=== PATIENT | female | born 1980 | race Caucasian/White ===

== ENCOUNTER 2017-12-24 13:35 | Outpatient (CLI) | payer OTHER | END 2017-12-24 13:36 | disposition home or self-care (01) | LOC: DTY/OP 13:35 | PROVIDERS: ATTEND Specialist | DX: Z01.818 Encounter for other preprocedural examination (principal); E66.01 Morbid (severe) obesity due to excess calories | CPT/HCPCS: 97802 ==

== ENCOUNTER 2022-10-28 12:51 | Emergency (ER) | payer SELFPAY ==
[2022-10-28 13:21] LABS: #Lymphocytes 0.6 thou/uL (1.20-3.40); #Monocytes 0.4 thou/uL (0.11-0.59); #Neutrophils 4.1 thou/uL (1.40-6.50); %Eosinophils 0.6 % (0.0-10.0); %Lymphocytes 11.3 % (21.0-51.0); %Monocytes 7.8 % (0.0-10.0); %Neutrophils 80.3 % (42.0-75.0); Hemoglobin 10.7 g/dL (12.0-16.0); Mean Corpuscular HGB CONC 30.5 g/dL (32.0-36.0); Mean Corpuscular Hemoglobin 24.4 pg (27.0-31.0); Mean Corpuscular Volume 80.1 fl (78.0-98.0); Platelet Count 269 10x3/uL (130-400); RBC Distribution Width 13.6 % (11.5-14.5); Red Blood Cell (RBC) Count 4.39 mill/uL (4.20-5.40); White Blood Cell (WBC) Count 5.1 10x3/uL (4.8-10.8)
[2022-10-28 13:46] LABS: ALT (SGPT) 9 U/L (8-55); AST (SGOT) 15 U/L (5-34); Albumin 3.9 g/dL (3.5-5.0); Alkaline Phosphatase 45 U/L (40-110); Anion Gap 11 mmol/L (10-20); BUN (Urea Nitrogen) 6 mg/dL (7.0-18.7); Bilirubin, Total 0.7 mg/dL (0.2-1.2); Calc. Creatinine Clearance 0 mL/min (70-130); Calcium 8.8 mg/dL (7.8-10.44); Carbon Dioxide 24 mmol/L (22-29); Chloride 102 mmol/L (98-107); Estimated GFR 88; Globulin 3.2 g/dL (2.4-3.5); Glucose 151 mg/dL (70-105); Potassium 3.6 mmol/L (3.5-5.1); Protein, Total 7.1 g/dL (6.0-8.3); Sodium 133 mmol/L (136-145)
[2022-10-28] MEDS ORDERED: Ketorolac Tromethamine 30 MG/ML VIAL ONE (15:47)
[2022-10-28] MEDS ORDERED: Albuterol 200 PUFF (6.7GM INHALER) ONE (15:49)
[2022-10-28 18:35] LABS: SARS-CoV-2 NAA Rapid Test Not Detected (NotDetected)
== END 2022-10-28 18:19 | disposition home or self-care (01) ==
LOC: ERS 12:51
DX: J06.9 Acute upper respiratory infection, unspecified (principal); Z20.822 Contact with and (suspected) exposure to COVID-19
CPT/HCPCS: 36415; 71045; 80053; 84484; 85025; 93005; 94760; 96374; J1885